=== PATIENT | male | born 1990 ===

== ENCOUNTER 2018-07-20 18:18 | Emergency (ER) | payer SELFPAY ==
[~2018-07-20] VITALS: Ht 175.3 cm; Wt 83.9 kg
[2018-07-20 18:23] VITALS: Ht 175.3 cm; Wt 83.9 kg
[2018-07-20 19:02] VITALS: BP 119/59
== END 2018-07-20 19:02 | disposition home or self-care (01) ==
LOC: ED 18:18
DX: Z13.89 Encounter for screening for other disorder (principal); Z93.3 Colostomy status